=== PATIENT | female | born 1975 | race Caucasian/White ===

== ENCOUNTER → 2016-12-22 | Outpatient (CLI) | payer BC ==
[~2016-12-22] MED LIST: DULOXETINE HCL60 MG PO; DURACHOL 3,7751 EACH PO; MOBIC PO; MULTI-DAY VITA1 EACH PO; OMEPRAZOLE40 M1 PO; OSTEO BI-FLEX1 EAC3 PO; TOPROL XL 50 MG50 MG PO
--- NOTE | ~2016-12-22 | CR97 ---
[facility] A Service of [facility] & [facility] RADIOLOGY TEXT RESULTS PATIENT: YONG PETERSON LOCATION: [facility] : [birth year] UNIT #: [id number] AGE: [address]: Ricco Zapata MD SEX: F ORDER DR: [id number] [facility] [address] [place], [place] [address] [id number] O MR#: [id number] Acc #: [id number] NAME: YONG PETERSON : 1975 SEX: F STUDY DATE/TIME: 12/22/2016 8:11 UNIT: [facility] ROOM: STUDY DESCRIPTION: CR Esophagram Attending Physician: Ricco Zapata M.D. Ordering Physician: Ricco Zapata M.D. Primary Care Physician: Jack Armijo MEDICAL IMAGING REPORT This report is preliminary unless electronic signature is present EXAM Barium esophagram HISTORY Preop bariatric surgery (Lap-Band). FINDINGS Under fluoroscopic control barium and crystals were administered orally. Swallowing was normal. The esophagus was normal in course, caliber, mucosal pattern and distensibility. Total fluoroscopy time 0.7 minutes. A total of 18 images were recorded. CONCLUSION Normal. Dictated by... Ricco Cummings M.D. THIS IS AN ELECTRONICALLY VERIFIED REPORT Ricco Cummings M.D. at 12/22/2016 4:40 PM RL/sharon TD: 12/22/2016 11:22 JOB #: [id number] MEDICAL IMAGING REPORT Page 1 of 1 COPY
--- NOTE | ~2016-12-22 | CR63 ---
[facility] A Service of [facility] & [facility] RADIOLOGY TEXT RESULTS PATIENT: YONG PETERSON LOCATION: [facility] : 79 UNIT #: [id number] AGE: [address]: Ricco Zapata MD SEX: F ORDER DR: [id number] [facility] [address] [place], [place] [address] [id number] O MR#: [id number] Acc #: [id number] NAME: YONG PETERSON : 1975 SEX: F STUDY DATE/TIME: 12/22/2016 7:58 UNIT: [facility] ROOM: STUDY DESCRIPTION: CR Chest 2 View Attending Physician: Ricco Zapata M.D. Ordering Physician: Ricco Zapata M.D. Primary Care Physician: Jack Armijo MEDICAL IMAGING REPORT This report is preliminary unless electronic signature is present EXAM Chest PA and lateral, 12/22/2016 HISTORY Morbid obesity, preop laparoscopic gastric banding. Shortness of breath on exertion today. FINDINGS PA and lateral examination of the chest upright shows a good expansion of the parenchyma with a normal distribution of the pulmonary vascularity. There is no indication of congestion, effusion, infiltrate, tumor, or nodular density. The pleural reflections and diaphragmatic contours are normal. The cardiac silhouette and mediastinal anatomy is within normal limits. IMPRESSION Normal chest. Dictated by... Raghu Villa M.D. THIS IS AN ELECTRONICALLY VERIFIED REPORT Raghu Villa M.D. at 12/22/2016 4:35 PM RISSA/sharon TD: 12/22/2016 09:12 JOB #: [id number] MEDICAL IMAGING REPORT Page 1 of 1 COPY
--- NOTE | ~2016-12-22 | EKG ---
PATIENT: YONG PETERSON UNIT #: [id number] Ventricular Rate: 86 BPM Atrial Rate: 86 BPM P-R Interval: 158 ms QRS Duration: 110 ms Q-T Interval: 374 ms QTC Calculation(Bezet): 447 ms P [place]: 54 degrees Calculated R [place]: -6 degrees Calculated T [place]: -13 degrees Diagnosis Line: Normal sinus rhythm Diagnosis Line: Moderate voltage criteria for LVH, may be normal Diagnosis Line: variant Diagnosis Line: Otherwise normal ECG Diagnosis Line: No previous ECGs available Diagnosis Line: Confirmed by YUSRA CAREY MD ([id number]) on 12/22/2016 Diagnosis Line: 8:10:11 PM INTERPRETING MD: AURELIO JAMES
[2016-12-22 09:20] LABS: HEMATOCRIT 38.4 % (35.0-45.0); HEMOGLOBIN 12.4 gm/dL (12.0-16.0); MEAN CELL VOLUME 82.2 FL (83-96); MEAN CORPUSCULAR HEMOGLOBIN 26.5 PG (28-34); MEAN CORPUSCULAR HGB CONC 32.2 g/dL (30-36); MEAN PLATELET VOLUME 8.9 FL (6.5-11.5); RED BLOOD COUNT 4.67 X10e (3.90-5.30); RED CELL DISTRIBUTION WIDTH 14.6 % (11.0-15.5); WHITE BLOOD COUNT 9.4 X10e3 (4.0-10.5)
[2016-12-22 10:26] LABS: ALBUMIN SERUM 3.8 g/dL (3.5-5.0); BILIRUBIN,TOTAL 0.6 mg/dL (0.2-2.0); CALCIUM SERUM 9.4 mg/dL (8.4-10.2); CREATININE SERUM 0.7 mg/dL (0.6-1.4); GLOM FILT RATE Estimated 109.1 mL/min (>60); POTASSIUM 4.2 mmol/L (3.5-5.1)
== END | disposition home or self-care (01) ==
LOC: CRAD 07:50 → CAMB 08:30
PROVIDERS: Surgery
DX: Z01.818 Encounter for other preprocedural examination (principal); E66.01 Morbid (severe) obesity due to excess calories
CPT/HCPCS: 36415; 71020; 74220; 80053; 80061; 84443; 85027; 93005

== ENCOUNTER → 2017-01-03 | Day surgery (SDC) | payer BC ==
--- NOTE | ~2017-01-03 | OR ---
Unit #: [id number] #: [id number] Patient: YONG PETERSON [id number] [address] [address] [id number] O MR#: [id number] NAME: YONG PETERSON ROOM: Date of Procedure: 01/03/2017 Admission Date: 01/03/2017 Surgeon: Ricco Zapata M.D. : 1975 Attending Physician: Ricco Zapata M.D. Primary Care Physician: Jack Armijo OPERATIVE REPORT PREOPERATIVE DIAGNOSIS Chronic morbid obesity with body mass index of 49. POSTOPERATIVE DIAGNOSES 1. Chronic morbid obesity with body mass index of 49. 2. Paraesophageal hiatal hernia. PROCEDURES PERFORMED 1. Laparoscopic adjustable gastric band. 2. Laparoscopic paraesophageal hiatal hernia repair. ASSISTANT Hussein Ortega M.D. ANESTHESIA General endotracheal anesthesia. ESTIMATED BLOOD LOSS Minimal. IV FLUIDS 800 crystalloid. COMPLICATIONS None. INDICATIONS FOR PROCEDURE The patient is a 41-year-old with chronic morbid obesity. DESCRIPTION OF PROCEDURE The patient was taken to the operating room and placed in supine position. General anesthesia was induced. The abdomen was prepped and draped. A 3-cm incision was then made left of the midline. A 10-mm Visiport was then placed intraabdominal under direct vision. The abdomen was insufflated to 15 mmHg with CO2. The patient was then placed in a steep reversed Trendelenburg. General inspection of the abdomen revealed what appeared to be a paraesophageal hernia. This was identified with a defect at the diaphragm using anterior palpation with the instrument. We then made a small incision in the subxiphoid region. A Ameena liver retractor was then placed intraabdominal and used to retract the left lobe of the liver upward to further expose the paraesophageal hernia and GE junction. I then placed a 5-mm port in the right upper quadrant, a 10-mm Unit #: [id number] #: [id number] Patient: YONG PETERSON port in the left upper quadrant, and another 5-mm port in the left lower quadrant. The stomach was retracted medial and downward. Upon retracting the stomach, we took down the paraesophageal ligament, exposing the right and left roshni at the paraesophageal hernia. Any hernia sac was reduced. We then repaired the paraesophageal hernia using interrupted #0 Ethibond sutures in a [id number] type fashion. This formed a snug repair to the anterior esophagus. We then retracted the stomach medially and further exposed the angle of His using Bovie electrocautery. The stomach was then retracted laterally. We then took down the hepatogastric ligament with Bovie electrocautery. This exposed the right roshni. Using blunt dissection, I created a retrogastric tunnel from this point to the angle of His. The band was then placed intraabdominal through the 10-mm port site. This was then brought through the retrogastric tunnel in a pars flaccida technique. The band was then closed anteriorly to form a 20-mL to 25-mL anterior gastric pouch. The fundus was then secured to the anterior pouch to prevent movement around the stomach using two interrupted #0 Ethibond sutures. A third suture was then used as a gathering stitch from the lesser curve to the anterior stomach, gathering and imbricating the remaining fundus of the stomach. The tubing was then brought out through the midline 10-mm port site. All ports and the Ameena liver retractor were removed under direct vision with no evidence of abdominal hemorrhage. A polypropylene mesh was then secured to the posterior face of the laparoscopic band port. This was secured using #0 Ethibond suture. This was then cut to shape. The port was then connected to the tubing and placed into a subcutaneous pocket just anterior to the rectus sheath. Its position was then confirmed. All tubing was then placed intraabdominal. The wounds were then closed with interrupted 4-0 Vicryl. The patient tolerated the procedure well and was sent to the recovery room in good condition. Dictated by... José Styles/nathanael TD: 01/03/2017 23:01 JOB #: [id number] OPERATIVE REPORT Page 1 of 1 X Ricco Zapata MD X PROCEDURE OPERATIVE NOTE
--- NOTE | ~2017-01-03 | CR7 ---
[facility] A Service of [facility] & [facility] RADIOLOGY TEXT RESULTS PATIENT: YONG PETERSON LOCATION: [facility] : [birth year] UNIT #: [id number] AGE: [address]: Ricco Zapata MD SEX: F ORDER DR: [id number] [facility] [address] [place], [place] [address] [id number] O MR#: [id number] Acc #: [id number] NAME: YONG PETERSON : 1975 SEX: F STUDY DATE/TIME: 01/03/2017 8:40 UNIT: [facility] ROOM: STUDY DESCRIPTION: CR Abdomen Single AP View Attending Physician: Ricco Zapata M.D. Ordering Physician: Ricco Zapata M.D. Primary Care Physician: Jack Armijo MEDICAL IMAGING REPORT This report is preliminary unless electronic signature is present EXAM AP of the abdomen INDICATION Postop Lap-Band placement. Initial exam. FINDINGS Lap-Band in place. Phi angle of approximately 49 degrees. Remainder unremarkable. IMPRESSION As above. Dictated by... Mateo Pineda M.D. THIS IS AN ELECTRONICALLY VERIFIED REPORT Mateo Pineda M.D. at 01/05/2017 9:08 AM CHERYL/christie TD: 01/03/2017 10:22 JOB #: [id number] MEDICAL IMAGING REPORT Page 1 of 1 COPY
== END | disposition home or self-care (01) ==
LOC: CSUR 06:16
DX: E66.01 Morbid (severe) obesity due to excess calories (principal); K44.9 Diaphragmatic hernia without obstruction or gangrene; K21.9 Gastro-esophageal reflux disease without esophagitis; F41.9 Anxiety disorder, unspecified; M19.90 Unspecified osteoarthritis, unspecified site; G47.30 Sleep apnea, unspecified; Z72.4 Inappropriate diet and eating habits; Z68.42 Body mass index [BMI] 45.0-49.9, adult; Z79.1 Long term (current) use of non-steroidal anti-inflammatories (NSAID)
CPT/HCPCS: 74000; 84703; C1781; J0131; J0690; J1650; J1885; J2250; J2405; J2710; J3010; L8699